=== PATIENT | female | born 1965 | race Two or more races ===

== ENCOUNTER → 2019-06-25 | Outpatient (CLI) | payer OTHER ==
--- NOTE | 2019-06-26 15:19 | RADIOLOGY REPORT (SQ) ---
EXAM DESCRIPTION: MRI RT LOWER JOINT WITHOUT COMPLETED DATE/TIME: 06/25/2019 12:37 pm REASON FOR STUDY: M25.561 PAIN IN RIGHT KNEE M25.561 PAIN IN RIGHT KNEE COMPARISON: None. TECHNIQUE: Rightknee images acquired and stored on PACS. Multiplanar images include fat sensitive s equences as T1, water sensitive sequences as FST2 or STIR, cartilage sensitive sequences as FSPD, and gradient echo sequences. LIMITATIONS: None. FINDINGS: JOINT AND BURSAE: No effusion. BONE CORTEX AND MARROW: No alteration of signal to suggest marrow replacement. No worrisome bone lesi ons. No occult fracture. ACL: Intact. No degeneration or ganglion cyst. PCL: Intact. MCL: Intact. No periligamentous edema or fluid. LCL: Intact. No periligamentous edema or fluid. MEDIAL MENISCUS: Horizontal tear posterior horn. LATERAL MENISCUS: No tears. No abnormal signal. MEDIAL COMPARTMENT: Cartilage thinning. No large osteophytes or subchondral edema. LATERAL COMPARTMENT: Subchondral cyst tibial plateau near the midline. No large osteophytes or subch ondral edema. PATELLA: Cartilage thinning. No large osteophytes or subchondral edema. EXTENSOR MECHANISM: Intact. Quadriceps and patella tendons normal. SOFT TISSUES: Adjacent muscles and subcutaneous tissues normal. Normal flow void in popliteal artery and vein. OTHER: No other significant finding. IMPRESSION: 1. Horizontal tear posterior horn medial meniscus. 2. Mild chondromalacia. Large subchondral cyst lateral tibial plateau. TECHNICAL DOCUMENTATION: JOB ID: [id number] [employer]- All Rights Reserved Reading location - IP/workstation name: [email or web address]
== END ==
LOC: RAD 11:57
PROVIDERS: ATTEND Physician Assistant
DX: S83.241A Other tear of medial meniscus, current injury, right knee, initial encounter (principal); X58.XXXA Exposure to other specified factors, initial encounter; M25.561 Pain in right knee; M22.41 Chondromalacia patellae, right knee; M85.661 Other cyst of bone, right lower leg